=== PATIENT | male | born 1995 | race Caucasian/White ===

== ENCOUNTER 2017-08-21 13:08 | Emergency (ER) | END 2017-08-21 17:20 | disposition home or self-care (01) ==

== ENCOUNTER 2018-07-19 20:21 | Emergency (ER) | payer BC ==
[~2018-07-19] VITALS: Ht 175.3 cm; Wt 75.2 kg
[2018-07-19 20:42] VITALS: Ht 175.3 cm; Wt 75.2 kg
[2018-07-19] MEDS ORDERED: ACETAMINOPHEN 500 MG TAB PO STA (21:02)
[2018-07-19] MEDS ORDERED: KETOROLAC 30 MG INJ IV STA (21:02)
[2018-07-19] MEDS ORDERED: SOD CHLORIDE 0.9% 1,000 ML IV STA (21:02)
[2018-07-19] MEDS ORDERED: AMPICILLIN/SULB 3 GM/NS (PMX) 100 ML IVPB STA (21:02)
[2018-07-19] MEDS ORDERED: DEXAMETHASONE 10 MG/ML 1 ML INJ IV ONE (21:30)
[2018-07-19] MEDS ORDERED: IBUP200C11 PO (22:40)
[2018-07-19] MEDS ORDERED: ACET-141 PO (22:40)
[2018-07-19] MEDS ORDERED: AMOX1TAB10 PO (22:47)
[2018-07-19] MEDS ORDERED: IBUP800T48 PO (22:47)
--- NOTE | 2018-07-19 22:51 | ERD ---
ER Documentation Chief Complaint Chief Complaint sore throat x 4 days HPI 22-year-old male who presents to the emergency room with 3-4 days of symptoms including sore throat, fever, painful swallowing. He describes generalized malaise is noted to have significant fever and tachycardia triage. He denies any change in his voice, no drooling and no stridor. ROS All systems reviewed and are negative except as per history of present illness. Medications Home Meds Active Scripts Ibuprofen* (Motrin*) 800 Mg Tab, 800 MG PO Q6H PRN for PAIN AND OR ELEVATED TEMP, #30 TAB Prov:MIESHA PHAM MD 07/19/18 Amoxicillin/Potassium Clav (Amox-Clav 875-125 mg Tablet) 875-125 mg Tab, 1 TAB PO BID for 7 Days, #14 TAB Prov:MIESHA PHAM MD 07/19/18 Reported Medications Ibuprofen* (Advil*) 200 Mg Capsule, 200 MG PO Q6H PRN for PAIN, CAP 07/19/18 Acetaminophen* (Acetaminophen*) 500 MG Extra Strength Tablet, 500 MG PO Q4H PRN for PAIN AND OR ELEVATED TEMP, TAB 07/19/18 Allergies Allergies: Coded Allergies: No Known Allergy (Unverified , 07/19/18) PMhx/Soc Medical and Surgical Hx: pt denies Medical Hx, pt denies Surgical Hx Hx Alcohol Use: No Hx Substance Use: No Hx Tobacco Use: No Smoking Status: Never smoker FmHx Family History: No diabetes Physical Exam Vitals Vital Signs Date Temp Pulse Resp B/P (MAP) Pulse Ox O2 O2 Flow FiO2 Time Delivery Rate 07/19/18 98.9 102 19 105/57 97 Room Air 22:27 (73) 07/19/18 103.2 122 20 137/78 97 20:42 (97) Physical Exam General: Well developed, well nourished, no acute distress Head: Normocephalic, atraumatic. Eyes: Pupils equally reactive, EOM intact ENT: Posterior pharynx with uvula that is midline, 3+ tonsillar swelling with scant exudates, tolerating secretions, soft submental space Neck: Supple, no lymphadenopathy Respiratory: Lungs clear bilaterally, no distress Cardiovascular: Tachycardia, no murmurs, rubs, or gallops Abdominal: Soft, non-tender, non-distended, no peritoneal signs : Deferred MSK: No edema, no unilateral swelling, 5/5 strength Neurologic: Alert and oriented, moving all extremities, normal speech, no focal weakness, no cerebellar signs Skin: No rash Psych: Normal mood Results 24 hrs Current Medications Medications Dose Sig/Bia Start Time Status Last (Trade) Ordered Route PRN Stop Time Admin Dose Reason Admin Sodium 1,000 ml @ Q1H STAT 07/19/18 DC 07/19/18 Chloride 1,000 mls/hr IV 21:02 21:12 07/19/18 22:01 Ketorolac 30 mg ONCE STAT 07/19/18 DC 07/19/18 Tromethamine IV 21:02 21:12 (Toradol) 07/19/18 21:03 Ampicillin 100 ml @ ONCE STAT 07/19/18 DC 07/19/18 Sodium/ 100 mls/hr IVPB 21:02 21:25 Sulbactam 07/19/18 22:01 Sodium 10 mg ONCE ONCE 07/19/18 DC 07/19/18 Dexamethasone IV 21:30 21:12 (Decadron) 07/19/18 21:31 1,000 mg ONCE STAT 07/19/18 DC 07/19/18 Acetaminophen PO 21:02 21:12 (Tylenol 07/19/18 21:03 Tab) Procedures/MDM Signs and symptoms very consistent with likely bacterial tonsillitis. No signs or symptoms concerning for deep space infection or peritonsillar abscess. Patient will benefit from symptom control, antibiotics and steroids. No indication for CT imaging given very low pretest probability for deep space infection. Patient given antipyretics IV fluids pain medications Decadron and Unasyn. Dramatically improved. Vital signs stabilized. The patient is safe for discharge. The patient does not have an identifiable emergent medical condition that warrants inpatient hospitalization at this time. The patient is deemed safe for discharge with outpatient follow-up. We discussed follow up with the patient's primary care doctor within 24 to 48 hours as needed. We also discussed return to the emergency room for worsening symptoms or worsening condition. Outpatient referral: None required Discharge Medications: Augmentin, Motrin Departure Diagnosis: Primary Impression: Acute bacterial tonsillitis Condition: Stable Patient Instructions: Pharyngitis, Strep (Presumed) Referrals: [facility] YOU HAVE RECEIVED A MEDICAL SCREENING EXAM AND THE RESULTS INDICATE THAT YOU DO NOT HAVE A CONDITION THAT REQUIRES URGENT TREATMENT IN THE EMERGENCY DEPARTMENT. FURTHER EVALUATION AND TREATMENT OF YOUR CONDITION CAN WAIT UNTIL YOU ARE SEEN IN YOUR DOCTORS OFFICE WITHIN THE NEXT 1-2 DAYS. IT IS YOUR RESPONSIBILITY TO MAKE AN APPOINTMENT FOR FOLOW-UP CARE. IF YOU HAVE A PRIMARY DOCTOR --you should call your primary doctor and schedule an appointment IF YOU DO NOT HAVE A PRIMARY DOCTOR YOU CAN CALL OUR PHYSICIAN REFERRAL HOTLINE AT IF YOU CAN NOT AFFORD TO SEE A PHYSICIAN YOU CAN CHOSE FROM THE FOLLOWING [facility] [address] [facility] [address] [facility]. [facility] [address] [facility] [address] [facility] [address] [facility] [facility] [address] [facility] YOU HAVE RECEIVED A MEDICAL SCREENING EXAM AND THE RESULTS INDICATE THAT YOU DO NOT HAVE A CONDITION THAT REQUIRES URGENT TREATMENT IN THE EMERGENCY DEPARTMENT. FURTHER EVALUATION AND TREATMENT OF YOUR CONDITION CAN WAIT UNTIL YOU ARE SEEN IN YOUR DOCTORS OFFICE WITHIN THE NEXT 1-2 DAYS. IT IS YOUR RESPONSIBILITY TO MAKE AN APPOINTMENT FOR FOLOW-UP CARE. IF YOU HAVE A PRIMARY DOCTOR --you should call your primary doctor and schedule and appointment IF YOU DO NOT HAVE A PRIMARY DOCTOR YOU CAN CALL OUR PHYSICIAN REFERRAL HOTLINE AT . IF YOU CAN NOT AFFORD TO SEE A PHYSICIAN YOU CAN CHOSE FROM THE FOLLOWING [facility]: [facility] [address] [place] [address] [facility] [address] [place] [address] [facility] + [facility] [place] [address] [place] [address] Additional Instructions: Call your primary care doctor TOMORROW for an appointment during the next 1 WEEK.Tell the construction secretary that you were referred from this facility.See the doctor sooner or return here if your condition worsens before your appointment time. MIESHA PHAM MD Jul 19, 2018 22:51
[2018-07-19 23:07] VITALS: BP 102/61; PULSE 99; RESP 18
== END 2018-07-19 23:07 | disposition home or self-care (01) ==
LOC: E/R 20:21
DX: J03.90 Acute tonsillitis, unspecified (principal)
CPT/HCPCS: 96365; 96375; 99284; J0295; J1100; J1885; J7030; Z7610